=== PATIENT | female | born 1940 | race Caucasian/White ===

== ENCOUNTER 2020-09-28 08:56 | Outpatient (CLI) | payer MEDICARE ==
--- NOTE | 2020-09-28 09:34 | BD ---
EXAM: Bone densitometry using DEXA HISTORY: 80 yo female. Screening for postmenopausal osteoporosis FINDINGS: L1--bone mineral density 0.845 g/sq cm; T score -1.3 ; Z score 1.1 L2--bone mineral density 0.966 g/sq cm; T score -0.6 ; Z score 2.1 L3--bone mineral density 1.020 g/sq cm; T score -0.6 ; Z score 2.2 L4--bone mineral density 1.130 g/sq cm; T score 0.6 ; Z score 2.5 Total L1-L4--bone mineral density 0.95 g/sq cm; T score -0.6 ; Z score 2.2 Left femoral neck--bone mineral density0.722; T score -1.1 ; Z score 1.2 Total proximal left femur--bone mineral density 0.745; T score -1.6 ; Z score 0.5 The 10 year fracture risk for a major osteoporotic fracture is 11% and for a hip fracture is 2.5%. IMPRESSION: Osteopenia
== END 2020-09-28 08:57 | disposition home or self-care (01) ==
LOC: BICMAMMO 08:56
PROVIDERS: ATTEND Internal Medicine
DX: Z13.820 Encounter for screening for osteoporosis (principal); M85.89 Other specified disorders of bone density and structure, multiple sites; Z78.0 Asymptomatic menopausal state
CPT/HCPCS: 77080

== ENCOUNTER 2020-11-30 08:08 | Outpatient (CLI) | payer MEDICARE ==
--- NOTE | 2020-11-30 11:05 | MMO ---
Bilateral MAMMO Bilat Screen [facility]. CLINICAL HISTORY: Patient is 80 years old and is seen for screening. The patient has no family history of breast cancer. The patient has no personal history of cancer. VIEWS: The views performed were: bilateral craniocaudal with tomosynthesis and bilateral mediolateral oblique with tomosynthesis. FILMS COMPARED: The present examination has been compared to prior imaging studies performed at [facility] on 11/18/2019, and at [facility] on 09/23/2015 and 09/25/2016. This study has been interpreted with the assistance of computer-aided detection. MAMMOGRAM FINDINGS: There are scattered fibroglandular densities. Benign calcifications are noted bilaterally. There are no suspicious masses, suspicious calcifications, or new areas of architectural distortion. IMPRESSION: THERE IS NO MAMMOGRAPHIC EVIDENCE OF MALIGNANCY. A ROUTINE FOLLOW-UP MAMMOGRAM IN 1 YEAR IS RECOMMENDED. THE RESULTS OF THIS EXAM WERE SENT TO THE PATIENT. ACR BI-RADS Category 2 - Benign finding MAMMOGRAPHY NOTE: 1. A negative mammogram report should not delay a biopsy if a dominant of clinically suspicious mass is present. 2. Approximately 10% to 15% of breast cancers are not detected by mammography. 3. Adenosis and dense breasts may obscure an underlying neoplasm. Reported by: FRANCINE LUND MD Electonically Signed: [id number]
== END 2020-11-30 08:09 | disposition home or self-care (01) ==
LOC: BICMAMMO 08:08
PROVIDERS: ATTEND Obstetrics & Gynecology
DX: Z12.31 Encounter for screening mammogram for malignant neoplasm of breast (principal)
CPT/HCPCS: 77063; 77067

== ENCOUNTER 2021-01-12 09:21 | Emergency (ER) | payer OTHER, SELFPAY | END 2021-01-12 10:50 | disposition home or self-care (01) | LOC: ERS 09:21 | DX: S51.002A Unspecified open wound of left elbow, initial encounter (principal); S81.002A Unspecified open wound, left knee, initial encounter; I10 Essential (primary) hypertension; W01.0XXA Fall on same level from slipping, tripping and stumbling without subsequent striking against object, initial encounter | CPT/HCPCS: 99282 ==

== ENCOUNTER 2021-12-01 08:11 | Outpatient (CLI) | payer MEDICARE | END 2021-12-01 08:12 | disposition home or self-care (01) | LOC: BICMAMMO 08:11 | PROVIDERS: ATTEND Obstetrics & Gynecology | DX: Z12.31 Encounter for screening mammogram for malignant neoplasm of breast (principal) | CPT/HCPCS: 77063; 77067 ==

== ENCOUNTER 2022-12-14 09:53 | Outpatient (CLI) | payer MEDICARE | END 2022-12-14 09:54 | disposition home or self-care (01) | LOC: BICMAMMO 09:53 | PROVIDERS: ATTEND Internal Medicine | DX: Z12.31 Encounter for screening mammogram for malignant neoplasm of breast (principal) | CPT/HCPCS: 77063; 77067 ==

== ENCOUNTER 2023-08-12 08:28 | Inpatient (IN) | payer MEDICARE ==
[2023-08-12] MEDS ORDERED: Labetalol HCl 100 MG/20 ML VIAL ONE (08:53)
[2023-08-12] MEDS ORDERED: Iopamidol-370 76% 500 ML MDV (1 ML CHARGE) ONE (08:55)
[2023-08-12 09:02] LABS: #Eosinphils 0.2 thou/uL (0.0-0.7); #Monocytes 0.4 thou/uL (0.11-0.59); #Neutrophils 3.5 thou/uL (1.40-6.50); %Basophils 0.6 % (0.0-1.0); %Eosinophils 2.9 % (0.0-10.0); %Lymphocytes 22.2 % (21.0-51.0); %Neutrophils 66.1 % (42.0-75.0); Hematocrit 39.2 % (36.0-47.0); Hemoglobin 13.3 g/dL (12.0-16.0); Mean Corpuscular HGB CONC 33.9 g/dL (32.0-36.0); Mean Corpuscular Hemoglobin 32.4 pg (27.0-31.0); Mean Corpuscular Volume 95.4 fl (78.0-98.0); Mean Platelet Volume 12.1 fL (7.4-10.4); Platelet Count 113 10x3/uL (130-400); RBC Distribution Width 12.4 % (11.5-14.5); Red Blood Cell (RBC) Count 4.11 mill/uL (4.20-5.40); White Blood Cell (WBC) Count 5.2 10x3/uL (4.8-10.8)
[2023-08-12] MEDS ORDERED: Tenecteplase 50 MG ONE (09:09)
[2023-08-12] MEDS ORDERED: niCARdipine 25 MG/10 ML SDV ONE (09:09)
[2023-08-12 09:27] LABS: ALT (SGPT) 16 U/L (8-55); AST (SGOT) 17 U/L (5-34); Albumin 4.1 g/dL (3.4-4.8); Alkaline Phosphatase 86 U/L (40-110); Anion Gap 14 mmol/L (10-20); BUN (Urea Nitrogen) 12 mg/dL (9.8-20.1); Bilirubin, Total 0.8 mg/dL (0.2-1.2); Calc. Creatinine Clearance 0 mL/min (70-130); Calcium 8.4 mg/dL (7.8-10.44); Carbon Dioxide 22 mmol/L (23-31); Chloride 106 mmol/L (98-107); Estimated GFR 87; Globulin 1.8 g/dL (2.4-3.5); Glucose 97 mg/dL (83-110); INR-International Normal Ratio 1.1; Potassium 4.1 mmol/L (3.5-5.1); Protein, Total 5.9 g/dL (5.8-8.1); Prothrombin Time 14.9 sec (12.0-14.7); Sodium 138 mmol/L (136-145)
[2023-08-12 09:28] LABS: PTT 30.6 sec (22.9-36.1)
[2023-08-12 09:29] LABS: Troponin I Less than 0.010 ng/mL (< 0.028)
[2023-08-12] MEDS ORDERED: niCARdipine 25 MG in Sodium Chloride 0.9% 250 ML 250 ML IVPB PRN (09:54)
[2023-08-12] MEDS ORDERED: TPA Communication Order-Pharmacy FS SCH (09:54)
[2023-08-12] MEDS ORDERED: Ondansetron PF 4 MG/2 ML Vial IVP PRN (09:54)
[2023-08-12] MEDS ORDERED: Senokot S 8.6-50 MG TAB PO PRN (09:54)
[2023-08-12] MEDS ORDERED: Calcium Carbonate 500 MG ChewTAB PO PRN (09:54)
[2023-08-12 10:14] LABS: Bacteria/HPF None Seen HPF (None Seen); Bilirubin Negative (Negative); Blood, Urine Negative (Negative); CAUTI Indications for Culture Alt mental st,lethar; Clarity Clear (Clear); Glucose, Urine (Dipstick) Normal (Negative); Ketone, Urine Negative (Negative); Leukocyte Negative Leu/uL (Negative); Nitrite Negative (Negative); Protein, Urine (Dipstick) Negative (Neg-Trace); RBC/HPF 0-3 HPF (0-3); Specific Gravity, Urine 1.031 (1.002-1.036); Squamous Epithelial 0-3 HPF (0-3); Urobilinogen Normal mg/dL (Less than 2); WBC/HPF 0-3 HPF (0-3); pH, Urine 7.5 (5.0-9.0)
[2023-08-12 10:18] LABS: Urine Culture Reflex No No
[2023-08-12] MEDS: Sodium Chloride 0.9% 1,000 ML IV SCH ×2 (11:14→23:22)
[2023-08-12] MEDS: Labetalol HCl 100 MG/20 ML VIAL SLOW IVP PRN ×4 (13:04→18:07)
[2023-08-12] MEDS: Lorazepam 2 MG/ML VIAL SLOW IVP PRN ×2 (14:46→20:06)
[2023-08-12] MEDS: hydrALAZINE 20 MG/ML VIAL SLOW IVP PRN (18:29)
[2023-08-12] MEDS: Famotidine/PF 20 mg/2ml Vial SLOW IVP SCH (20:05)
[2023-08-12] MEDS: Rosuvastatin 20 MG TAB PO SCH (20:22)
[2023-08-12] MEDS ORDERED: Ketorolac Tromethamine 30 MG/ML VIAL IVP PRN (20:26)
[2023-08-12 21:49] LABS: Calcium 8.6 mg/dL (7.8-10.44)
[2023-08-12 21:55] LABS: Anion Gap 13 mmol/L (10-20); BUN (Urea Nitrogen) 13 mg/dL (9.8-20.1); Calc. Creatinine Clearance 61 mL/min (70-130); Calcium 8.8 mg/dL (7.8-10.44); Carbon Dioxide 21 mmol/L (23-31); Chloride 107 mmol/L (98-107); Estimated GFR 88; Glucose 119 mg/dL (83-110); Magnesium 1.6 mg/dL (1.6-2.6); Potassium 3.4 mmol/L (3.5-5.1); Sodium 138 mmol/L (136-145)
[2023-08-12] MEDS ORDERED: Potassium Chloride 20 MEQ in Premix 1 BAG IVPB SCH (22:45)
[2023-08-12] MEDS ORDERED: Magnesium 2 GM/50 ML(in water) 2 GM in Premix 1 BAG IVPB SCH (22:45)
[2023-08-13] MEDS: Labetalol HCl 100 MG/20 ML VIAL SLOW IVP PRN ×5 (05:11→20:47)
[2023-08-13] MEDS: Famotidine/PF 20 mg/2ml Vial SLOW IVP SCH ×2 (08:10→20:47)
[2023-08-13] MEDS: hydrALAZINE 20 MG/ML VIAL SLOW IVP PRN (09:04)
[2023-08-13] MEDS: Lactated Ringer's 1,000 ML IV SCH (11:10)
[2023-08-13 12:54] LABS: #Eosinphils 0.1 thou/uL (0.0-0.7); #Monocytes 0.7 thou/uL (0.11-0.59); #Neutrophils 7.7 thou/uL (1.40-6.50); %Basophils 0.2 % (0.0-1.0); %Eosinophils 0.5 % (0.0-10.0); %Lymphocytes 12.2 % (21.0-51.0); %Monocytes 7.5 % (0.0-10.0); %Neutrophils 79.4 % (42.0-75.0); Hematocrit 38.9 % (36.0-47.0); Hemoglobin 13.8 g/dL (12.0-16.0); Mean Corpuscular HGB CONC 35.5 g/dL (32.0-36.0); Mean Corpuscular Hemoglobin 32.5 pg (27.0-31.0); Mean Corpuscular Volume 91.7 fl (78.0-98.0); Mean Platelet Volume 11.9 fL (7.4-10.4); Platelet Count 130 10x3/uL (130-400); RBC Distribution Width 12.7 % (11.5-14.5); Red Blood Cell (RBC) Count 4.24 mill/uL (4.20-5.40); White Blood Cell (WBC) Count 9.7 10x3/uL (4.8-10.8)
[2023-08-13 13:04] LABS: Hemoglobin A1c 4.9 % (4.0-6.0)
[2023-08-13 13:08] LABS: INR-International Normal Ratio 1.2; Prothrombin Time 15.3 sec (12.0-14.7)
[2023-08-13 13:19] LABS: ALT (SGPT) 15 U/L (8-55); AST (SGOT) 20 U/L (5-34); Albumin 4.4 g/dL (3.4-4.8); Alkaline Phosphatase 89 U/L (40-110); Anion Gap 13 mmol/L (10-20); BUN (Urea Nitrogen) 11 mg/dL (9.8-20.1); Bilirubin, Total 1.2 mg/dL (0.2-1.2); Calc. Creatinine Clearance 58 mL/min (70-130); Calcium 8.9 mg/dL (7.8-10.44); Carbon Dioxide 20 mmol/L (23-31); Cardiac Risk 2.4 (Less than 4.5); Chloride 108 mmol/L (98-107); Cholesterol 154 mg/dl (< 200 Desired); Estimated GFR 87; Globulin 2.2 g/dL (2.4-3.5); Glucose 112 mg/dL (83-110); HDL Cholesterol 65 mg/dL (>60 Neg Risk); LDL Cholesterol, Calculated 75 mg/dL; Magnesium 2.1 mg/dL (1.6-2.6); Potassium 3.8 mmol/L (3.5-5.1); Protein, Total 6.6 g/dL (5.8-8.1); Sodium 137 mmol/L (136-145); Triglycerides 71 mg/dL (Less than 150)
[2023-08-13 13:26] LABS: PTT 29.1 sec (22.9-36.1)
[2023-08-13] MEDS: Ketorolac Tromethamine 30 MG/ML VIAL IVP PRN (18:56)
[2023-08-13] MEDS: Rosuvastatin 20 MG TAB PO SCH (20:48)
[2023-08-13] MEDS: Acetaminophen 325 MG TAB PO PRN (20:48)
[2023-08-14] MEDS: hydrALAZINE 20 MG/ML VIAL SLOW IVP PRN ×2 (00:11→16:48)
[2023-08-14] MEDS: Lactated Ringer's 1,000 ML IV SCH (00:15)
[2023-08-14] MEDS ORDERED: Lorazepam 2 MG/ML VIAL SLOW IVP SCH (01:00)
[2023-08-14] MEDS: Labetalol HCl 100 MG/20 ML VIAL SLOW IVP PRN ×4 (05:16→12:13)
[2023-08-14] MEDS: Famotidine/PF 20 mg/2ml Vial SLOW IVP SCH ×2 (08:02→21:08)
[2023-08-14] MEDS: Rosuvastatin 20 MG TAB PO SCH (21:07)
[2023-08-14] MEDS: Acetaminophen 325 MG TAB PO PRN (21:08)
[2023-08-15 05:13] LABS: #Monocytes 1.2 thou/uL (0.11-0.59); %Basophils 0.2 % (0.0-1.0); %Eosinophils 0.3 % (0.0-10.0); %Lymphocytes 9.2 % (21.0-51.0); %Monocytes 10.9 % (0.0-10.0); Hematocrit 36.7 % (36.0-47.0); Hemoglobin 12.6 g/dL (12.0-16.0); Mean Corpuscular HGB CONC 34.3 g/dL (32.0-36.0); Mean Corpuscular Hemoglobin 32.5 pg (27.0-31.0); Mean Corpuscular Volume 94.6 fl (78.0-98.0); Mean Platelet Volume 12.3 fL (7.4-10.4); Platelet Count 127 10x3/uL (130-400); RBC Distribution Width 12.8 % (11.5-14.5); Red Blood Cell (RBC) Count 3.88 mill/uL (4.20-5.40); White Blood Cell (WBC) Count 11.4 10x3/uL (4.8-10.8)
[2023-08-15 05:48] LABS: Anion Gap 18 mmol/L (10-20); BUN (Urea Nitrogen) 21 mg/dL (9.8-20.1); Calc. Creatinine Clearance 56 mL/min (70-130); Calcium 8.6 mg/dL (7.8-10.44); Carbon Dioxide 18 mmol/L (23-31); Chloride 108 mmol/L (98-107); Estimated GFR 87; Glucose 80 mg/dL (83-110); Potassium 3.1 mmol/L (3.5-5.1); Sodium 141 mmol/L (136-145)
[2023-08-15] MEDS: Famotidine/PF 20 mg/2ml Vial SLOW IVP SCH ×2 (08:25→20:47)
[2023-08-15] MEDS: D5 1/2 NS w/20 mEq KCL 1,000 ML IV SCH ×2 (08:25→20:46)
[2023-08-15] MEDS: hydrALAZINE 20 MG/ML VIAL SLOW IVP PRN (08:26)
[2023-08-15] MEDS: Ketorolac Tromethamine 30 MG/ML VIAL IVP PRN (15:38)
[2023-08-15] MEDS: Rosuvastatin 20 MG TAB PO SCH (20:47)
[2023-08-15] MEDS: Acetaminophen 325 MG TAB PO PRN (20:48)
[2023-08-15] MEDS: Labetalol HCl 100 MG/20 ML VIAL SLOW IVP PRN ×2 (20:48→22:47)
[2023-08-15] MEDS: Melatonin 3 MG TAB PO PRN (22:46)
[2023-08-16] MEDS: Ketorolac Tromethamine 30 MG/ML VIAL IVP PRN (05:35)
[2023-08-16] MEDS: D5 1/2 NS w/20 mEq KCL 1,000 ML IV SCH ×2 (11:45→23:24)
[2023-08-16] MEDS: Famotidine/PF 20 mg/2ml Vial SLOW IVP SCH ×2 (11:45→20:04)
[2023-08-16] MEDS: Aspirin 300 MG Suppository PR SCH (11:46)
[2023-08-16] MEDS: hydrALAZINE 20 MG/ML VIAL SLOW IVP PRN ×2 (15:42→21:39)
[2023-08-16] MEDS: Labetalol HCl 100 MG/20 ML VIAL SLOW IVP PRN (19:46)
[2023-08-16] MEDS: Rosuvastatin 20 MG TAB PO SCH (20:04)
[2023-08-16] MEDS ORDERED: traMADol HCl 50 MG TAB PO SCH (23:15)
[2023-08-17] MEDS: hydrALAZINE 20 MG/ML VIAL SLOW IVP PRN ×2 (06:05→20:24)
[2023-08-17] MEDS: Acetaminophen 325 MG TAB PO PRN ×2 (06:09→13:30)
[2023-08-17] MEDS: Aspirin 300 MG Suppository PR SCH (10:07)
[2023-08-17] MEDS: Famotidine/PF 20 mg/2ml Vial SLOW IVP SCH ×2 (10:09→20:06)
[2023-08-17] MEDS: Labetalol HCl 100 MG/20 ML VIAL SLOW IVP PRN ×2 (12:00→16:52)
[2023-08-17] MEDS: D5 1/2 NS w/20 mEq KCL 1,000 ML IV SCH (12:00)
[2023-08-17] MEDS: Cyclobenzaprine 10 MG TAB PO PRN (13:54)
[2023-08-17] MEDS ORDERED: Gabapentin 300 MG CAP PO SCH (16:00)
[2023-08-17] MEDS: Melatonin 3 MG TAB PO PRN (20:05)
[2023-08-17] MEDS: Gabapentin 300 MG CAP PO SCH (20:05)
[2023-08-17] MEDS: Rosuvastatin 20 MG TAB PO SCH (20:06)
[2023-08-17] MEDS: Atenolol 50 MG TAB PO SCH (20:06)
[2023-08-17] MEDS ORDERED: Atorvastatin Calcium 10 MG TAB PO SCH (21:00)
[2023-08-17] MEDS: traMADol HCl 50 MG TAB PO PRN (21:11)
[2023-08-18] MEDS: D5 1/2 NS w/20 mEq KCL 1,000 ML IV SCH ×2 (02:00→13:55)
[2023-08-18] MEDS: Labetalol HCl 100 MG/20 ML VIAL SLOW IVP PRN (06:17)
[2023-08-18] MEDS: Cyclobenzaprine 10 MG TAB PO PRN (09:06)
[2023-08-18] MEDS: Gabapentin 300 MG CAP PO SCH ×3 (09:07→20:47)
[2023-08-18] MEDS: hydrALAZINE 20 MG/ML VIAL SLOW IVP PRN ×2 (09:07→19:05)
[2023-08-18] MEDS: Aspirin 300 MG Suppository PR SCH (09:08)
[2023-08-18] MEDS: Famotidine/PF 20 mg/2ml Vial SLOW IVP SCH ×2 (09:08→20:50)
[2023-08-18] MEDS: traMADol HCl 50 MG TAB PO PRN ×2 (10:16→20:49)
[2023-08-18] MEDS ORDERED: Morphine 2 MG/ML VIAL SLOW IVP SCH (10:45)
[2023-08-18] MEDS: Baclofen 10 MG TAB PO PRN ×2 (15:57→20:48)
[2023-08-18 18:07] LABS: Anion Gap 11 mmol/L (10-20); BUN (Urea Nitrogen) 9 mg/dL (9.8-20.1); Calc. Creatinine Clearance 59 mL/min (70-130); Calcium 8.7 mg/dL (7.8-10.44); Carbon Dioxide 18 mmol/L (23-31); Chloride 105 mmol/L (98-107); Estimated GFR 87; Glucose 114 mg/dL (83-110); Magnesium 1.7 mg/dL (1.6-2.6); Potassium 4.3 mmol/L (3.5-5.1); Sodium 130 mmol/L (136-145)
[2023-08-18] MEDS: Atenolol 50 MG TAB PO SCH (20:48)
[2023-08-18] MEDS: Rosuvastatin 20 MG TAB PO SCH (20:49)
[2023-08-18] MEDS: Melatonin 3 MG TAB PO PRN (20:49)
[2023-08-18] MEDS ORDERED: Atorvastatin Calcium 40 MG TAB PO SCH (21:00)
[2023-08-18] MEDS: Sodium Chloride 0.9% 1,000 ML IV SCH (22:24)
[2023-08-19] MEDS: hydrALAZINE 20 MG/ML VIAL SLOW IVP PRN ×3 (05:09→23:16)
[2023-08-19 08:22] LABS: #Eosinphils 0.2 thou/uL (0.0-0.7); #Monocytes 0.9 thou/uL (0.11-0.59); #Neutrophils 6.2 thou/uL (1.40-6.50); %Basophils 0.2 % (0.0-1.0); %Eosinophils 2.3 % (0.0-10.0); %Monocytes 11.2 % (0.0-10.0); %Neutrophils 74.1 % (42.0-75.0); Hematocrit 36.3 % (36.0-47.0); Hemoglobin 12.5 g/dL (12.0-16.0); Mean Corpuscular HGB CONC 34.4 g/dL (32.0-36.0); Mean Corpuscular Hemoglobin 32.6 pg (27.0-31.0); Mean Corpuscular Volume 94.8 fl (78.0-98.0); Mean Platelet Volume 12.3 fL (7.4-10.4); Platelet Count 144 10x3/uL (130-400); RBC Distribution Width 12.1 % (11.5-14.5); Red Blood Cell (RBC) Count 3.83 mill/uL (4.20-5.40); White Blood Cell (WBC) Count 8.4 10x3/uL (4.8-10.8)
[2023-08-19 08:43] LABS: Anion Gap 12 mmol/L (10-20); BUN (Urea Nitrogen) 9 mg/dL (9.8-20.1); Calc. Creatinine Clearance 62 mL/min (70-130); Calcium 8.8 mg/dL (7.8-10.44); Carbon Dioxide 22 mmol/L (23-31); Chloride 105 mmol/L (98-107); Estimated GFR 88; Glucose 93 mg/dL (83-110); Potassium 4.1 mmol/L (3.5-5.1); Sodium 135 mmol/L (136-145)
[2023-08-19] MEDS: Gabapentin 300 MG CAP PO SCH ×3 (09:03→20:43)
[2023-08-19] MEDS: Acetaminophen 650 MG Suppository PR PRN (09:04)
[2023-08-19] MEDS: Famotidine/PF 20 mg/2ml Vial SLOW IVP SCH ×2 (09:06→20:44)
[2023-08-19] MEDS: Losartan 25 MG TAB PO SCH (09:08)
[2023-08-19] MEDS: Aspirin 300 MG Suppository PR SCH (09:09)
[2023-08-19] MEDS: Sodium Chloride 0.9% 1,000 ML IV SCH ×2 (10:44→12:12)
[2023-08-19] MEDS: Acetaminophen 325 MG TAB PO PRN (14:11)
[2023-08-19] MEDS: traMADol HCl 50 MG TAB PO PRN ×2 (14:12→20:50)
[2023-08-19] MEDS: Atenolol 50 MG TAB PO SCH (20:44)
[2023-08-19] MEDS: Rosuvastatin 20 MG TAB PO SCH (20:44)
[2023-08-19] MEDS: Melatonin 3 MG TAB PO PRN (23:13)
[2023-08-20] MEDS: Labetalol HCl 100 MG/20 ML VIAL SLOW IVP PRN ×2 (04:55→21:03)
[2023-08-20] MEDS: Gabapentin 300 MG CAP PO SCH ×3 (08:11→21:02)
[2023-08-20] MEDS: traMADol HCl 50 MG TAB PO PRN ×2 (08:12→18:33)
[2023-08-20] MEDS: hydrALAZINE 20 MG/ML VIAL SLOW IVP PRN ×2 (08:13→16:23)
[2023-08-20] MEDS: Losartan 25 MG TAB PO SCH (08:13)
[2023-08-20] MEDS: Aspirin 300 MG Suppository PR SCH (08:15)
[2023-08-20] MEDS: Acetaminophen 650 MG Suppository PR PRN (08:15)
[2023-08-20] MEDS: Famotidine/PF 20 mg/2ml Vial SLOW IVP SCH ×2 (08:15→21:03)
[2023-08-20] MEDS ORDERED: Losartan 25 MG TAB PO SCH ×2 (09:00→13:00)
[2023-08-20] MEDS: Sodium Chloride 0.9% 1,000 ML IV SCH (15:44)
[2023-08-20] MEDS: Baclofen 10 MG TAB PO PRN (18:33)
[2023-08-20] MEDS: Atenolol 50 MG TAB PO SCH (21:01)
[2023-08-20] MEDS: Melatonin 3 MG TAB PO PRN (21:02)
[2023-08-20] MEDS: Rosuvastatin 20 MG TAB PO SCH (21:03)
[2023-08-21] MEDS: Sodium Chloride 0.9% 1,000 ML IV SCH ×2 (02:26→16:59)
[2023-08-21] MEDS: Labetalol HCl 100 MG/20 ML VIAL SLOW IVP PRN (05:48)
[2023-08-21] MEDS ORDERED: Sodium Chloride 0.9% 100 ML ONE (10:02)
[2023-08-21] MEDS ORDERED: CEFAZOLIN 2 GM VIAL ONE (10:02)
[2023-08-21] MEDS ORDERED: Lidocaine 1% PF 5 ML VIAL ONE (10:15)
[2023-08-21] MEDS ORDERED: PROPOFOL 200 MG/20 ML VIAL ONE (10:15)
[2023-08-21] MEDS: Famotidine/PF 20 mg/2ml Vial SLOW IVP SCH (10:26)
[2023-08-21] MEDS: Gabapentin 300 MG CAP PO SCH ×3 (10:26→20:51)
[2023-08-21] MEDS: Losartan 25 MG TAB PO SCH (10:27)
[2023-08-21] MEDS: Aspirin 300 MG Suppository PR SCH (10:27)
[2023-08-21] MEDS ORDERED: ALPRAZolam 0.25 MG TAB PO SCH (12:15)
[2023-08-21] MEDS: Baclofen 10 MG TAB PO PRN (12:59)
[2023-08-21] MEDS: traMADol HCl 50 MG TAB PO PRN ×2 (12:59→21:02)
[2023-08-21] MEDS: hydrALAZINE 20 MG/ML VIAL SLOW IVP PRN (13:00)
[2023-08-21] MEDS: Rosuvastatin 20 MG TAB PO SCH (20:52)
[2023-08-21] MEDS: Famotidine 20 MG TAB PER TUBE SCH (20:52)
[2023-08-21] MEDS: Atenolol 50 MG TAB PO SCH (20:52)
[2023-08-22] MEDS: Sodium Chloride 0.9% 1,000 ML IV SCH (04:10)
[2023-08-22] MEDS: Gabapentin 300 MG CAP PO SCH ×2 (09:30→17:38)
[2023-08-22] MEDS: Famotidine 20 MG TAB PER TUBE SCH ×2 (09:32→20:46)
[2023-08-22] MEDS: Aspirin Chewable 81 MG TAB PER TUBE SCH (09:32)
[2023-08-22] MEDS: Losartan 25 MG TAB PO SCH (09:33)
[2023-08-22] MEDS: Amlodipine 5 MG TAB PER TUBE SCH (09:36)
[2023-08-22] MEDS: traMADol HCl 50 MG TAB PO PRN (17:36)
[2023-08-22] MEDS ORDERED: Calcium Carbonate 500 MG ChewTAB PER TUBE PRN (20:45)
[2023-08-22] MEDS: Gabapentin 300 MG CAP PER TUBE SCH (20:47)
[2023-08-22] MEDS: Rosuvastatin 20 MG TAB PER TUBE SCH (20:48)
[2023-08-22] MEDS: Atenolol 50 MG TAB PER TUBE SCH (20:48)
[2023-08-23] MEDS: Melatonin 3 MG TAB PER TUBE PRN (00:18)
[2023-08-23 05:31] LABS: Anion Gap 7 mmol/L (10-20); BUN (Urea Nitrogen) 28 mg/dL (9.8-20.1); Calc. Creatinine Clearance 46 mL/min (70-130); Calcium 8.4 mg/dL (7.8-10.44); Carbon Dioxide 26 mmol/L (23-31); Chloride 102 mmol/L (98-107); Estimated GFR 75; Glucose 165 mg/dL (83-110); Magnesium 1.7 mg/dL (1.6-2.6); Potassium 3.4 mmol/L (3.5-5.1); Sodium 132 mmol/L (136-145)
[2023-08-23 05:39] LABS: Phosphorus 1.4 mg/dL (2.3-4.7)
[2023-08-23] MEDS ORDERED: Electrolyte Replacement Protocol 1 EACH FS SCH (05:47)
[2023-08-23] MEDS ORDERED: Potassium Bicarbonate/Cit Ac 20 MEQ TAB PO SCH (08:15)
[2023-08-23] MEDS ORDERED: Potassium Phosphate 30 MMOL in Sodium Chloride 0.9% 500 ML IVPB SCH (09:00)
[2023-08-23] MEDS: Gabapentin 300 MG CAP PER TUBE SCH ×3 (09:05→22:16)
[2023-08-23] MEDS: Losartan 25 MG TAB PER TUBE SCH (09:06)
[2023-08-23] MEDS: Aspirin Chewable 81 MG TAB PER TUBE SCH (09:07)
[2023-08-23] MEDS: Magnesium Oxide 400 MG TAB PO SCH (09:07)
[2023-08-23] MEDS: Famotidine 20 MG TAB PER TUBE SCH ×2 (09:07→22:15)
[2023-08-23] MEDS: Baclofen 10 MG TAB PER TUBE PRN (10:22)
[2023-08-23] MEDS: Acetaminophen 650 MG/20.3 ML UDCUP PER TUBE PRN (10:22)
[2023-08-23] MEDS: Amlodipine 5 MG TAB PER TUBE SCH (10:22)
[2023-08-23] MEDS ORDERED: Metoclopramide HCl 10 MG/2 ML VIAL IVP SCH (16:30)
[2023-08-23] MEDS: Senokot S 8.6-50 MG TAB PER TUBE PRN (17:11)
[2023-08-23] MEDS: Atenolol 50 MG TAB PER TUBE SCH (22:15)
[2023-08-23] MEDS: Rosuvastatin 20 MG TAB PER TUBE SCH (22:16)
[2023-08-24 06:50] LABS: Anion Gap 12 mmol/L (10-20); BUN (Urea Nitrogen) 22 mg/dL (9.8-20.1); Calc. Creatinine Clearance 55 mL/min (70-130); Calcium 8.4 mg/dL (7.8-10.44); Carbon Dioxide 24 mmol/L (23-31); Chloride 106 mmol/L (98-107); Estimated GFR 84; Glucose 87 mg/dL (83-110); Phosphorus 2.5 mg/dL (2.3-4.7); Potassium 4.6 mmol/L (3.5-5.1); Sodium 137 mmol/L (136-145)
[2023-08-24] MEDS: Gabapentin 300 MG CAP PER TUBE SCH ×3 (10:34→20:31)
[2023-08-24] MEDS: Amlodipine 5 MG TAB PER TUBE SCH (10:34)
[2023-08-24] MEDS: Aspirin Chewable 81 MG TAB PER TUBE SCH (10:34)
[2023-08-24] MEDS: Famotidine 20 MG TAB PER TUBE SCH ×2 (10:34→20:32)
[2023-08-24] MEDS: Losartan 25 MG TAB PER TUBE SCH (10:35)
[2023-08-24] MEDS: Magnesium Oxide 400 MG TAB PO SCH (10:35)
[2023-08-24] MEDS: traMADol HCl 50 MG TAB PER TUBE PRN (19:50)
[2023-08-24] MEDS: Rosuvastatin 20 MG TAB PER TUBE SCH (20:31)
[2023-08-24] MEDS: Melatonin 3 MG TAB PER TUBE PRN (20:31)
[2023-08-24] MEDS: Baclofen 10 MG TAB PER TUBE PRN (20:32)
[2023-08-24] MEDS: Atenolol 50 MG TAB PER TUBE SCH (20:32)
[2023-08-25] MEDS: Amlodipine 10 MG TAB PER TUBE SCH (09:08)
[2023-08-25] MEDS: Famotidine 20 MG TAB PER TUBE SCH ×2 (09:08→20:56)
[2023-08-25] MEDS: Gabapentin 300 MG CAP PER TUBE SCH ×3 (09:09→20:57)
[2023-08-25] MEDS: Aspirin Chewable 81 MG TAB PER TUBE SCH (09:09)
[2023-08-25] MEDS: Losartan 25 MG TAB PER TUBE SCH (09:09)
[2023-08-25] MEDS: Metoclopramide HCl 10 MG/2 ML VIAL IVP SCH ×2 (14:56→21:11)
[2023-08-25 16:10] VITALS: BMI 23.1
[2023-08-25] MEDS: Baclofen 10 MG TAB PER TUBE PRN (20:56)
[2023-08-25] MEDS: Rosuvastatin 20 MG TAB PER TUBE SCH (20:56)
[2023-08-25] MEDS: Atenolol 50 MG TAB PER TUBE SCH (20:56)
[2023-08-25] MEDS: Melatonin 3 MG TAB PER TUBE PRN (20:56)
[2023-08-25] MEDS: traMADol HCl 50 MG TAB PER TUBE PRN (20:57)
[2023-08-26] MEDS: Metoclopramide HCl 10 MG/2 ML VIAL IVP SCH ×3 (05:18→21:57)
[2023-08-26 05:21] LABS: Hemoglobin 11.1 g/dL (12.0-16.0); Mean Corpuscular HGB CONC 33.6 g/dL (32.0-36.0); Mean Corpuscular Hemoglobin 31.8 pg (27.0-31.0); Mean Corpuscular Volume 94.6 fl (78.0-98.0); Mean Platelet Volume 11.6 fL (7.4-10.4); Platelet Count 183 10x3/uL (130-400); RBC Distribution Width 11.6 % (11.5-14.5); Red Blood Cell (RBC) Count 3.49 mill/uL (4.20-5.40); White Blood Cell (WBC) Count 11.6 10x3/uL (4.8-10.8)
[2023-08-26 06:11] LABS: Anion Gap 11 mmol/L (10-20); BUN (Urea Nitrogen) 20 mg/dL (9.8-20.1); Calc. Creatinine Clearance 59 mL/min (70-130); Calcium 8.8 mg/dL (7.8-10.44); Carbon Dioxide 28 mmol/L (23-31); Chloride 101 mmol/L (98-107); Estimated GFR 87; Glucose 103 mg/dL (83-110); Magnesium 1.6 mg/dL (1.6-2.6); Phosphorus 3.4 mg/dL (2.3-4.7); Potassium 4.5 mmol/L (3.5-5.1); Sodium 135 mmol/L (136-145)
[2023-08-26] MEDS ORDERED: Magnesium 2 GM/50 ML(in water) 2 GM in Premix 1 BAG IVPB SCH (08:15)
[2023-08-26] MEDS: Gabapentin 300 MG CAP PER TUBE SCH ×3 (09:27→21:57)
[2023-08-26] MEDS: Losartan 25 MG TAB PER TUBE SCH (09:27)
[2023-08-26] MEDS: Amlodipine 10 MG TAB PER TUBE SCH (09:27)
[2023-08-26] MEDS: Baclofen 10 MG TAB PER TUBE PRN (09:28)
[2023-08-26] MEDS: Famotidine 20 MG TAB PER TUBE SCH ×2 (09:28→21:56)
[2023-08-26] MEDS: Aspirin Chewable 81 MG TAB PER TUBE SCH (09:28)
[2023-08-26] MEDS ORDERED: Acetaminophen 325 MG/10.15 ML UDCUP PER TUBE SCH (16:30)
[2023-08-26 16:38] LABS: Bacteria/HPF 2+ HPF (None Seen); Bilirubin Negative (Negative); Blood, Urine Trace (Negative); Clarity Turbid (Clear); Glucose, Urine (Dipstick) Normal (Negative); Ketone, Urine Negative (Negative); Leukocyte 500 Leu/uL (Negative); Nitrite Negative (Negative); Protein, Urine (Dipstick) 30 mg/dL (Neg-Trace); Specific Gravity, Urine 1.014 (1.002-1.036); Squamous Epithelial 0-3 HPF (0-3); Urobilinogen 6 mg/dL (Less than 2); WBC/HPF Greater than 50 HPF (0-3); pH, Urine 7.5 (5.0-9.0)
[2023-08-26] MEDS ORDERED: Piperacillin/Tazobactam 3.375 GM in Sodium Chloride 0.9% 100 ML IVPB SCH (18:00)
[2023-08-26] MEDS: Acetaminophen 650 MG/20.3 ML UDCUP PER TUBE PRN (21:56)
[2023-08-26] MEDS: Rosuvastatin 20 MG TAB PER TUBE SCH (21:57)
[2023-08-26] MEDS: Atenolol 50 MG TAB PER TUBE SCH (21:57)
[2023-08-26] MEDS: Piperacillin/Tazobactam 3.375 GM in Sodium Chloride 0.9% 100 ML IVPB SCH (21:58)
[2023-08-27] MEDS: Piperacillin/Tazobactam 3.375 GM in Sodium Chloride 0.9% 100 ML IVPB SCH ×3 (04:56→21:53)
[2023-08-27] MEDS: Metoclopramide HCl 10 MG/2 ML VIAL IVP SCH ×3 (04:57→21:53)
[2023-08-27] MEDS: Senokot S 8.6-50 MG TAB PER TUBE PRN (04:57)
[2023-08-27] MEDS: Losartan 25 MG TAB PER TUBE SCH (09:13)
[2023-08-27] MEDS: Famotidine 20 MG TAB PER TUBE SCH ×2 (09:13→21:57)
[2023-08-27] MEDS: Gabapentin 300 MG CAP PER TUBE SCH ×3 (09:13→21:52)
[2023-08-27] MEDS: Clopidogrel Bisulfate 75 MG TAB PO SCH (09:13)
[2023-08-27] MEDS: Amlodipine 10 MG TAB PER TUBE SCH (09:13)
[2023-08-27] MEDS: Baclofen 10 MG TAB PER TUBE PRN ×2 (09:15→21:52)
[2023-08-27] MEDS: Aspirin Chewable 81 MG TAB PER TUBE SCH (09:15)
[2023-08-27] MEDS ORDERED: Glucagon 1 MG/ML KIT IM PRN (18:45)
[2023-08-27] MEDS ORDERED: Dextrose 50% Abboject 50 ML SYRINGE SLOW IVP PRN (18:45)
[2023-08-27] MEDS: Rosuvastatin 20 MG TAB PER TUBE SCH (21:52)
[2023-08-27] MEDS: Atenolol 50 MG TAB PER TUBE SCH (21:52)
[2023-08-28 05:29] LABS: Hematocrit 34.2 % (36.0-47.0); Hemoglobin 11.6 g/dL (12.0-16.0); Mean Corpuscular HGB CONC 33.9 g/dL (32.0-36.0); Mean Corpuscular Hemoglobin 31.9 pg (27.0-31.0); Mean Platelet Volume 12.4 fL (7.4-10.4); Platelet Count 199 10x3/uL (130-400); RBC Distribution Width 11.6 % (11.5-14.5); Red Blood Cell (RBC) Count 3.64 mill/uL (4.20-5.40); White Blood Cell (WBC) Count 11.7 10x3/uL (4.8-10.8)
[2023-08-28] MEDS: Piperacillin/Tazobactam 3.375 GM in Sodium Chloride 0.9% 100 ML IVPB SCH ×3 (05:46→20:57)
[2023-08-28] MEDS: Metoclopramide HCl 10 MG/2 ML VIAL IVP SCH ×3 (05:46→20:57)
[2023-08-28 06:13] LABS: Anion Gap 16 mmol/L (10-20); BUN (Urea Nitrogen) 21 mg/dL (9.8-20.1); Calc. Creatinine Clearance 52 mL/min (70-130); Calcium 8.5 mg/dL (7.8-10.44); Carbon Dioxide 23 mmol/L (23-31); Chloride 104 mmol/L (98-107); Estimated GFR 81; Glucose 92 mg/dL (83-110); Magnesium 1.9 mg/dL (1.6-2.6); Phosphorus 3.3 mg/dL (2.3-4.7); Potassium 4.5 mmol/L (3.5-5.1); Sodium 138 mmol/L (136-145)
[2023-08-28] MEDS: Losartan 25 MG TAB PER TUBE SCH (10:20)
[2023-08-28] MEDS: Amlodipine 10 MG TAB PER TUBE SCH (10:21)
[2023-08-28] MEDS: Aspirin Chewable 81 MG TAB PER TUBE SCH (10:21)
[2023-08-28] MEDS: Famotidine 20 MG TAB PER TUBE SCH ×2 (10:21→20:58)
[2023-08-28] MEDS: Gabapentin 300 MG CAP PER TUBE SCH ×3 (10:21→20:58)
[2023-08-28] MEDS: Clopidogrel Bisulfate 75 MG TAB PO SCH (10:21)
[2023-08-28] MEDS: traMADol HCl 50 MG TAB PER TUBE PRN (17:55)
[2023-08-28] MEDS: Atenolol 50 MG TAB PER TUBE SCH (20:58)
[2023-08-28] MEDS: Rosuvastatin 20 MG TAB PER TUBE SCH (20:58)
[2023-08-29] MEDS: Piperacillin/Tazobactam 3.375 GM in Sodium Chloride 0.9% 100 ML IVPB SCH ×3 (05:50→21:13)
[2023-08-29] MEDS: Metoclopramide HCl 10 MG/2 ML VIAL IVP SCH ×3 (05:51→21:09)
[2023-08-29] MEDS: Aspirin Chewable 81 MG TAB PER TUBE SCH (09:55)
[2023-08-29] MEDS: Losartan 25 MG TAB PER TUBE SCH (09:55)
[2023-08-29] MEDS: NIFEdipine XL 60 MG ER.TAB PO SCH (09:55)
[2023-08-29] MEDS: Famotidine 20 MG TAB PER TUBE SCH ×2 (09:55→21:10)
[2023-08-29] MEDS: Clopidogrel Bisulfate 75 MG TAB PO SCH (09:55)
[2023-08-29] MEDS: Gabapentin 300 MG CAP PER TUBE SCH ×3 (09:55→21:09)
[2023-08-29] MEDS: Baclofen 10 MG TAB PER TUBE PRN (10:01)
[2023-08-29] MEDS: traMADol HCl 50 MG TAB PER TUBE PRN (10:01)
[2023-08-29] MEDS: Rosuvastatin 20 MG TAB PER TUBE SCH (21:09)
[2023-08-29] MEDS: Atenolol 50 MG TAB PER TUBE SCH (21:10)
[2023-08-30 04:56] LABS: #Basophils 0.1 thou/uL (0.0-0.2); #Eosinphils 0.4 thou/uL (0.0-0.7); #Monocytes 1.2 thou/uL (0.11-0.59); #Neutrophils 8.6 thou/uL (1.40-6.50); %Basophils 0.5 % (0.0-1.0); %Eosinophils 3.2 % (0.0-10.0); %Lymphocytes 9.7 % (21.0-51.0); %Monocytes 10.4 % (0.0-10.0); %Neutrophils 75.8 % (42.0-75.0); Hematocrit 32.8 % (36.0-47.0); Hemoglobin 10.9 g/dL (12.0-16.0); Mean Corpuscular HGB CONC 33.2 g/dL (32.0-36.0); Mean Corpuscular Volume 96.2 fl (78.0-98.0); Mean Platelet Volume 12.2 fL (7.4-10.4); Platelet Count 206 10x3/uL (130-400); RBC Distribution Width 11.6 % (11.5-14.5); Red Blood Cell (RBC) Count 3.41 mill/uL (4.20-5.40); White Blood Cell (WBC) Count 11.3 10x3/uL (4.8-10.8)
[2023-08-30] MEDS: Metoclopramide HCl 10 MG/2 ML VIAL IVP SCH ×2 (05:26→14:39)
[2023-08-30] MEDS: Piperacillin/Tazobactam 3.375 GM in Sodium Chloride 0.9% 100 ML IVPB SCH ×2 (05:26→14:39)
[2023-08-30 05:29] LABS: Albumin 3.1 g/dL (3.4-4.8); Anion Gap 11 mmol/L (10-20); BUN (Urea Nitrogen) 26 mg/dL (9.8-20.1); BUN/Creatinine Ratio 36.62; Calc. Creatinine Clearance 52 mL/min (70-130); Calcium 8.7 mg/dL (7.8-10.44); Carbon Dioxide 25 mmol/L (23-31); Chloride 104 mmol/L (98-107); Estimated GFR 84; Glucose 96 mg/dL (83-110); Phosphorus 3.4 mg/dL (2.3-4.7); Potassium 4.8 mmol/L (3.5-5.1); Sodium 135 mmol/L (136-145)
[2023-08-30] MEDS ORDERED: Sodium Chloride 0.9% 1,000 ML IV SCH (08:15)
[2023-08-30] MEDS: Gabapentin 300 MG CAP PER TUBE SCH ×2 (10:14→16:09)
[2023-08-30] MEDS: Losartan 25 MG TAB PER TUBE SCH (10:14)
[2023-08-30] MEDS: Aspirin Chewable 81 MG TAB PER TUBE SCH (10:15)
[2023-08-30] MEDS: Clopidogrel Bisulfate 75 MG TAB PO SCH (10:15)
[2023-08-30] MEDS: NIFEdipine XL 60 MG ER.TAB PO SCH (10:15)
[2023-08-30] MEDS: Famotidine 20 MG TAB PER TUBE SCH (10:20)
[2023-08-30 12:40] VITALS: BP 129/61; TEMP 98.9
== END 2023-08-30 16:35 | DRG 62 ==
LOC: SUATTDRO 08:28 → ERS 08:28 → CCU 09:54 → IMCU/EMU 10:37 → 2SE 08-14 14:07
PROVIDERS: ADMIT Internal Medicine; ATTEND Internal Medicine
PROC: 3E03317 Introduction of Other Thrombolytic into Peripheral Vein, Percutaneous Approach (ICD-10-PCS; 2023-08-12)
PROC: 0DB78ZX Excision of Stomach, Pylorus, Via Natural or Artificial Opening Endoscopic, Diagnostic (ICD-10-PCS; principal; 2023-08-21)
PROC: 0DH63UZ Insertion of Feeding Device into Stomach, Percutaneous Approach (ICD-10-PCS; 2023-08-21)
PROC: 3E0G76Z Introduction of Nutritional Substance into Upper GI, Via Natural or Artificial Opening (ICD-10-PCS; 2023-08-21)
DX: I63.512 Cerebral infarction due to unspecified occlusion or stenosis of left middle cerebral artery (principal); E87.1 Hypo-osmolality and hyponatremia; G81.91 Hemiplegia, unspecified affecting right dominant side; N39.0 Urinary tract infection, site not specified; R41.82 Altered mental status, unspecified; Z51.5 Encounter for palliative care; Z66 Do not resuscitate; B96.20 Unspecified Escherichia coli [E. coli] as the cause of diseases classified elsewhere; B96.5 Pseudomonas (aeruginosa) (mallei) (pseudomallei) as the cause of diseases classified elsewhere; R47.1 Dysarthria and anarthria; I10 Essential (primary) hypertension; E87.6 Hypokalemia; E83.39 Other disorders of phosphorus metabolism; E78.5 Hyperlipidemia, unspecified; D69.6 Thrombocytopenia, unspecified; F41.1 Generalized anxiety disorder; E87.8 Other disorders of electrolyte and fluid balance, not elsewhere classified; R13.12 Dysphagia, oropharyngeal phase; R33.9 Retention of urine, unspecified; Z90.49 Acquired absence of other specified parts of digestive tract; Z79.899 Other long term (current) drug therapy
CPT/HCPCS: 36415; 36416; 70450; 70496; 70498; 70551; 71045; 74018; 74230; 80048; 80053; 80061; 80069; 81001; 83036; 83735; 84100; 84443; 84484; 85025; 85027; 85610; 85730; 87040; 87077; 87086; 87186; 88305; 93005; 93306; 96365; 96374; 96375; J0360; J1885; J2060; J2272; J2543; J2704; J2765; J3101; J3475; J3480; J3490; J7030; J7050; J7120; Q9967; S0028

== ENCOUNTER 2023-09-23 18:16 | Inpatient (IN) | payer MEDICARE ==
[~2023-09-23 18:16] MED LIST: Iopamidol 370 76% 100 ML VIAL ONE
[2023-09-23 18:54] LABS: Bacteria/HPF 4+ HPF (None Seen); Bilirubin Negative (Negative); Blood, Urine 3+ (Negative); CAUTI Indications for Culture Alt mental st,lethar; Clarity Extra Turbid (Clear); Glucose, Urine (Dipstick) 30 mg/dL (Negative); Ketone, Urine Negative (Negative); Leukocyte 250 Leu/uL (Negative); Nitrite Negative (Negative); Protein, Urine (Dipstick) Greater than 600 mg/dL (Neg-Trace); RBC/HPF Greater than 50 HPF (0-3); Specific Gravity, Urine 1.014 (1.002-1.036); Squamous Epithelial None Seen HPF (0-3); Triple Phosphate Crystal 1+ HPF (None Seen); Urobilinogen Normal mg/dL (Less than 2); WBC/HPF Greater than 50 HPF (0-3); pH, Urine 8.5 (5.0-9.0)
[2023-09-23 18:57] LABS: Urine Culture Reflex Yes Yes
[2023-09-23] MEDS ORDERED: Sodium Chloride 0.9% 0 ML ONE (19:02)
[2023-09-23] MEDS ORDERED: Cefepime 2 GM VIAL ONE (19:02)
[2023-09-23 19:03] LABS: #Eosinphils 0.1 thou/uL (0.0-0.7); #Monocytes 0.8 thou/uL (0.11-0.59); %Basophils 0.1 % (0.0-1.0); %Eosinophils 0.5 % (0.0-10.0); %Lymphocytes 3.2 % (21.0-51.0); %Monocytes 4.5 % (0.0-10.0); %Neutrophils 91.2 % (42.0-75.0); Hematocrit 35.5 % (36.0-47.0); Hemoglobin 11.4 g/dL (12.0-16.0); Mean Corpuscular HGB CONC 32.1 g/dL (32.0-36.0); Mean Corpuscular Hemoglobin 32.1 pg (27.0-31.0); Mean Platelet Volume 12.9 fL (7.4-10.4); Platelet Count 175 10x3/uL (130-400); RBC Distribution Width 12.1 % (11.5-14.5); Red Blood Cell (RBC) Count 3.55 mill/uL (4.20-5.40); White Blood Cell (WBC) Count 18.6 10x3/uL (4.8-10.8)
[2023-09-23 19:32] LABS: Troponin I Less than 0.010 ng/mL (< 0.028)
[2023-09-23 19:33] LABS: ALT (SGPT) 58 U/L (8-55); AST (SGOT) 38 U/L (5-34); Albumin 3.4 g/dL (3.4-4.8); Alkaline Phosphatase 120 U/L (40-110); Anion Gap 13 mmol/L (10-20); BUN (Urea Nitrogen) 41 mg/dL (9.8-20.1); Bilirubin, Total 0.7 mg/dL (0.2-1.2); Calc. Creatinine Clearance 0 mL/min (70-130); Calcium 9.9 mg/dL (7.8-10.44); Carbon Dioxide 28 mmol/L (23-31); Chloride 103 mmol/L (98-107); Estimated GFR 72; Glucose 127 mg/dL (83-110); Lipase 27 U/L (8-78); Potassium 4.7 mmol/L (3.5-5.1); Protein, Total 7.4 g/dL (5.8-8.1); Sodium 139 mmol/L (136-145)
[2023-09-23] MEDS ORDERED: Vancomycin (BATCH) 1.25 GM in Premix 1 BAG IVPB SCH (20:00)
[2023-09-23 21:42] VITALS: BMI 20.5
[2023-09-23 23:01] LABS: Troponin I Less than 0.010 ng/mL (< 0.028)
[2023-09-23] MEDS ORDERED: Acetaminophen 325 MG TAB PO PRN (23:09)
[2023-09-23] MEDS ORDERED: Melatonin 3 MG TAB PER TUBE PRN (23:34)
[2023-09-23] MEDS ORDERED: Senokot S 8.6-50 MG TAB PER TUBE PRN (23:34)
[2023-09-23] MEDS ORDERED: Calcium Carbonate 500 MG ChewTAB PER TUBE PRN (23:34)
[2023-09-23] MEDS ORDERED: Baclofen 10 MG TAB PER TUBE PRN (23:34)
[2023-09-23] MEDS ORDERED: LevoFLOXacin 750 mg/D5W 750 MG in Premix 1 BAG IVPB SCH (23:59)
[2023-09-24 01:54] LABS: Troponin I Less than 0.010 ng/mL (< 0.028)
[2023-09-24] MEDS ORDERED: Acetaminophen 650 MG/20.3 ML UDCUP ONE (02:40)
[2023-09-24] MEDS: Lactated Ringer's 1,000 ML IV SCH ×3 (03:00→21:43)
[2023-09-24] MEDS ORDERED: LevoFLOXacin 750 mg/D5W 150 ml Premix Bag ONE (03:09)
[2023-09-24] MEDS ORDERED: Ondansetron PF 4 MG/2 ML Vial IVP PRN (06:41)
[2023-09-24] MEDS ORDERED: Ondansetron ODT 4 MG TAB PO PRN (06:42)
[2023-09-24] MEDS ORDERED: Vancomycin 1 GM in Premix 1 BAG IVPB SCH (09:00)
[2023-09-24] MEDS ORDERED: Cefepime 2 GM in Sodium Chloride 0.9% 100 ML IVPB SCH (09:00)
[2023-09-24] MEDS: Amlodipine 10 MG TAB PO SCH (09:27)
[2023-09-24] MEDS: Aspirin Chewable 81 MG TAB PER TUBE SCH (09:27)
[2023-09-24] MEDS: Clopidogrel Bisulfate 75 MG TAB PO SCH (09:27)
[2023-09-24] MEDS: Losartan 25 MG TAB PER TUBE SCH (09:27)
[2023-09-24] MEDS: Gabapentin 300 MG CAP PER TUBE SCH ×3 (09:27→21:44)
[2023-09-24] MEDS: Famotidine 20 MG TAB PO SCH ×2 (09:27→21:44)
[2023-09-24 09:55] LABS: #Monocytes 0.8 thou/uL (0.11-0.59); %Basophils 0.2 % (0.0-1.0); %Eosinophils 0.3 % (0.0-10.0); %Lymphocytes 6.1 % (21.0-51.0); %Monocytes 6.4 % (0.0-10.0); %Neutrophils 86.6 % (42.0-75.0); Hematocrit 30.6 % (36.0-47.0); Hemoglobin 9.9 g/dL (12.0-16.0); Mean Corpuscular HGB CONC 32.4 g/dL (32.0-36.0); Mean Platelet Volume 12.9 fL (7.4-10.4); Platelet Count 141 10x3/uL (130-400); RBC Distribution Width 12.7 % (11.5-14.5); Red Blood Cell (RBC) Count 3.09 mill/uL (4.20-5.40); White Blood Cell (WBC) Count 12.7 10x3/uL (4.8-10.8)
[2023-09-24 10:27] LABS: ALT (SGPT) 44 U/L (8-55); AST (SGOT) 29 U/L (5-34); Albumin 2.7 g/dL (3.4-4.8); Alkaline Phosphatase 86 U/L (40-110); Anion Gap 13 mmol/L (10-20); BUN (Urea Nitrogen) 31 mg/dL (9.8-20.1); Bilirubin, Total 0.6 mg/dL (0.2-1.2); Calc. Creatinine Clearance 61 mL/min (70-130); Calcium 8.8 mg/dL (7.8-10.44); Carbon Dioxide 22 mmol/L (23-31); Chloride 111 mmol/L (98-107); Estimated GFR 87; Globulin 3.3 g/dL (2.4-3.5); Glucose 110 mg/dL (83-110); Potassium 3.8 mmol/L (3.5-5.1); Sodium 142 mmol/L (136-145)
[2023-09-24] MEDS ORDERED: Vancomycin HCl 750 MG in Sodium Chloride 0.9% 250 ML 250 ML IVPB SCH (20:00)
[2023-09-24] MEDS: Cefepime 1 GM in Sodium Chloride 0.9% 100 ML IVPB SCH (21:43)
[2023-09-24] MEDS: Rosuvastatin 20 MG TAB PER TUBE SCH (21:44)
[2023-09-24] MEDS: Vancomycin (BATCH) 1.25 GM in Premix 1 BAG IVPB SCH (21:44)
[2023-09-24] MEDS: traMADol HCl 50 MG TAB PO PRN (21:45)
[2023-09-24] MEDS: Atenolol 50 MG TAB PO SCH (21:45)
[2023-09-25] MEDS ORDERED: Phenazopyridine HCl 100 MG TAB PO SCH (01:45)
[2023-09-25] MEDS: Acetaminophen 650 MG/20.3 ML UDCUP PER TUBE PRN ×2 (01:48→12:38)
[2023-09-25 09:11] LABS: #Eosinphils 0.5 thou/uL (0.0-0.7); #Monocytes 0.6 thou/uL (0.11-0.59); #Neutrophils 5.7 thou/uL (1.40-6.50); %Basophils 0.3 % (0.0-1.0); %Eosinophils 5.9 % (0.0-10.0); %Monocytes 7.7 % (0.0-10.0); %Neutrophils 74.7 % (42.0-75.0); Hematocrit 30.4 % (36.0-47.0); Hemoglobin 9.8 g/dL (12.0-16.0); Mean Corpuscular HGB CONC 32.2 g/dL (32.0-36.0); Mean Corpuscular Hemoglobin 31.4 pg (27.0-31.0); Mean Corpuscular Volume 97.4 fl (78.0-98.0); Mean Platelet Volume 12.2 fL (7.4-10.4); Platelet Count 135 10x3/uL (130-400); RBC Distribution Width 12.4 % (11.5-14.5); Red Blood Cell (RBC) Count 3.12 mill/uL (4.20-5.40); White Blood Cell (WBC) Count 7.6 10x3/uL (4.8-10.8)
[2023-09-25 09:37] LABS: Anion Gap 11 mmol/L (10-20); BUN (Urea Nitrogen) 17 mg/dL (9.8-20.1); Calc. Creatinine Clearance 71 mL/min (70-130); Calcium 8.6 mg/dL (7.8-10.44); Carbon Dioxide 22 mmol/L (23-31); Chloride 109 mmol/L (98-107); Estimated GFR 91; Glucose 93 mg/dL (83-110); Potassium 3.1 mmol/L (3.5-5.1); Sodium 139 mmol/L (136-145)
[2023-09-25] MEDS: Losartan 25 MG TAB PER TUBE SCH (09:38)
[2023-09-25] MEDS: Phenazopyridine HCl 100 MG TAB PO SCH ×3 (09:38→16:41)
[2023-09-25] MEDS: Aspirin Chewable 81 MG TAB PER TUBE SCH (09:38)
[2023-09-25] MEDS: traMADol HCl 50 MG TAB PO PRN (09:39)
[2023-09-25] MEDS: Gabapentin 300 MG CAP PER TUBE SCH ×3 (09:39→21:25)
[2023-09-25] MEDS: Famotidine 20 MG TAB PO SCH ×2 (09:39→21:26)
[2023-09-25] MEDS: Amlodipine 10 MG TAB PO SCH (09:39)
[2023-09-25] MEDS: Cefepime 1 GM in Sodium Chloride 0.9% 100 ML IVPB SCH (09:39)
[2023-09-25] MEDS: Lactated Ringer's 1,000 ML IV SCH ×2 (11:23→21:29)
[2023-09-25] MEDS: Polyethylene Glycol 3350 17 GM Packet PER TUBE SCH (11:23)
[2023-09-25 21:04] LABS: Vancomycin, Trough 8.8 ug/mL
[2023-09-25] MEDS: Cefepime 2 GM in Sodium Chloride 0.9% 100 ML IVPB SCH (21:25)
[2023-09-25] MEDS: Rosuvastatin 20 MG TAB PER TUBE SCH (21:26)
[2023-09-25] MEDS: Atenolol 50 MG TAB PO SCH (21:26)
[2023-09-25] MEDS: Vancomycin (BATCH) 1.25 GM in Premix 1 BAG IVPB SCH (21:56)
[2023-09-25] MEDS ORDERED: Vancomycin HCl 750 MG in Sodium Chloride 0.9% 250 ML 250 ML IVPB SCH (23:59)
[2023-09-26 06:39] LABS: Anion Gap 11 mmol/L (10-20); BUN (Urea Nitrogen) 18 mg/dL (9.8-20.1); Calc. Creatinine Clearance 75 mL/min (70-130); Calcium 8.3 mg/dL (7.8-10.44); Carbon Dioxide 24 mmol/L (23-31); Chloride 108 mmol/L (98-107); Estimated GFR 92; Glucose 103 mg/dL (83-110); Potassium 3.1 mmol/L (3.5-5.1); Sodium 140 mmol/L (136-145)
[2023-09-26] MEDS ORDERED: Electrolyte Replacement Protocol 1 EACH FS SCH (06:52)
[2023-09-26] MEDS ORDERED: Potassium Chloride 20 MEQ TAB PO SCH (08:00)
[2023-09-26] MEDS: Amlodipine 10 MG TAB PO SCH (09:25)
[2023-09-26] MEDS: Phenazopyridine HCl 100 MG TAB PO SCH ×3 (09:25→16:26)
[2023-09-26] MEDS: Famotidine 20 MG TAB PO SCH ×2 (09:25→20:21)
[2023-09-26] MEDS: Gabapentin 300 MG CAP PER TUBE SCH ×3 (09:26→20:21)
[2023-09-26] MEDS: Potassium Chloride 20 MEQ TAB PO SCH (09:26)
[2023-09-26] MEDS: Losartan 25 MG TAB PER TUBE SCH (09:26)
[2023-09-26] MEDS: Lactated Ringer's 1,000 ML IV SCH ×2 (09:27→16:26)
[2023-09-26] MEDS: Cefepime 2 GM in Sodium Chloride 0.9% 100 ML IVPB SCH (09:27)
[2023-09-26] MEDS: Aspirin Chewable 81 MG TAB PER TUBE SCH (09:48)
[2023-09-26] MEDS: Polyethylene Glycol 3350 17 GM Packet PER TUBE SCH (09:49)
[2023-09-26] MEDS: Clopidogrel Bisulfate 75 MG TAB PO SCH (12:23)
[2023-09-26] MEDS: Acetaminophen 650 MG/20.3 ML UDCUP PER TUBE PRN (20:20)
[2023-09-26] MEDS: Sulfameth/Trimethoprim DS 800-160mg TAB PO SCH (20:21)
[2023-09-26] MEDS: Atenolol 50 MG TAB PO SCH (20:21)
[2023-09-26] MEDS: Rosuvastatin 20 MG TAB PER TUBE SCH (20:21)
[2023-09-26] MEDS: traMADol HCl 50 MG TAB PO PRN (23:39)
[2023-09-27] MEDS: Acetaminophen 650 MG/20.3 ML UDCUP PER TUBE PRN ×3 (01:29→20:54)
[2023-09-27 06:00] LABS: #Eosinphils 0.3 thou/uL (0.0-0.7); #Monocytes 0.6 thou/uL (0.11-0.59); %Basophils 0.2 % (0.0-1.0); %Eosinophils 4.6 % (0.0-10.0); %Lymphocytes 17.7 % (21.0-51.0); %Monocytes 10.1 % (0.0-10.0); %Neutrophils 67.1 % (42.0-75.0); Hematocrit 26.3 % (36.0-47.0); Hemoglobin 8.9 g/dL (12.0-16.0); Mean Corpuscular HGB CONC 33.8 g/dL (32.0-36.0); Mean Corpuscular Hemoglobin 32.1 pg (27.0-31.0); Mean Corpuscular Volume 94.9 fl (78.0-98.0); Mean Platelet Volume 12.1 fL (7.4-10.4); Platelet Count 144 10x3/uL (130-400); RBC Distribution Width 12.3 % (11.5-14.5); Red Blood Cell (RBC) Count 2.77 mill/uL (4.20-5.40); White Blood Cell (WBC) Count 5.9 10x3/uL (4.8-10.8)
[2023-09-27] MEDS: Lactated Ringer's 1,000 ML IV SCH ×2 (06:11→15:59)
[2023-09-27 07:02] LABS: Anion Gap 9 mmol/L (10-20); BUN (Urea Nitrogen) 11 mg/dL (9.8-20.1); Calc. Creatinine Clearance 73 mL/min (70-130); Calcium 8.2 mg/dL (7.8-10.44); Carbon Dioxide 25 mmol/L (23-31); Chloride 108 mmol/L (98-107); Estimated GFR 92; Glucose 94 mg/dL (83-110); Potassium 3.3 mmol/L (3.5-5.1); Sodium 139 mmol/L (136-145)
[2023-09-27] MEDS: Potassium Chloride 20 MEQ TAB PO SCH (08:57)
[2023-09-27] MEDS: Famotidine 20 MG TAB PO SCH ×2 (08:57→20:53)
[2023-09-27] MEDS: Gabapentin 300 MG CAP PER TUBE SCH ×3 (08:58→20:53)
[2023-09-27] MEDS: Clopidogrel Bisulfate 75 MG TAB PO SCH (08:58)
[2023-09-27] MEDS: Aspirin Chewable 81 MG TAB PER TUBE SCH (08:58)
[2023-09-27] MEDS: Sulfameth/Trimethoprim DS 800-160mg TAB PO SCH ×2 (08:58→20:53)
[2023-09-27] MEDS: Amlodipine 10 MG TAB PO SCH (08:58)
[2023-09-27] MEDS: Phenazopyridine HCl 100 MG TAB PO SCH (08:59)
[2023-09-27] MEDS: Losartan 25 MG TAB PER TUBE SCH (08:59)
[2023-09-27] MEDS ORDERED: Potassium Bicarbonate/Cit Ac 20 MEQ TAB PER TUBE SCH (09:00)
[2023-09-27] MEDS: Polyethylene Glycol 3350 17 GM Packet PER TUBE SCH (09:00)
[2023-09-27] MEDS: traMADol HCl 50 MG TAB PO PRN (11:31)
[2023-09-27] MEDS: Rosuvastatin 20 MG TAB PER TUBE SCH (20:53)
[2023-09-27] MEDS: Atenolol 50 MG TAB PO SCH (20:53)
[2023-09-28] MEDS: Lactated Ringer's 1,000 ML IV SCH ×2 (02:48→12:15)
[2023-09-28 06:28] LABS: Anion Gap 13 mmol/L (10-20); BUN (Urea Nitrogen) 10 mg/dL (9.8-20.1); Calc. Creatinine Clearance 71 mL/min (70-130); Calcium 8.7 mg/dL (7.8-10.44); Carbon Dioxide 25 mmol/L (23-31); Chloride 103 mmol/L (98-107); Estimated GFR 91; Glucose 90 mg/dL (83-110); Potassium 4.5 mmol/L (3.5-5.1); Sodium 136 mmol/L (136-145)
[2023-09-28 07:46] VITALS: BP 161/65; TEMP 98.3
[2023-09-28] MEDS: Sulfameth/Trimethoprim DS 800-160mg TAB PO SCH (08:27)
[2023-09-28] MEDS: Famotidine 20 MG TAB PO SCH (08:27)
[2023-09-28] MEDS: Losartan 25 MG TAB PER TUBE SCH (08:27)
[2023-09-28] MEDS: Polyethylene Glycol 3350 17 GM Packet PER TUBE SCH (08:27)
[2023-09-28] MEDS: Aspirin Chewable 81 MG TAB PER TUBE SCH (08:27)
[2023-09-28] MEDS: Amlodipine 10 MG TAB PO SCH (08:27)
[2023-09-28] MEDS: Gabapentin 300 MG CAP PER TUBE SCH ×2 (08:27→15:28)
[2023-09-28] MEDS: Clopidogrel Bisulfate 75 MG TAB PO SCH (08:27)
[2023-09-28] MEDS ORDERED: Metoclopramide HCl 10 MG TAB PER TUBE PRN (12:51)
== END 2023-09-28 17:37 | DRG 698 ==
LOC: ERS 18:16 → T4-A 20:00 → ERHOLD 20:41 → T4-A 09-24 07:10
PROVIDERS: ADMIT Student in an Organized Health Care Education/Training Program; ATTEND Student in an Organized Health Care Education/Training Program
DX: T83.511A Infection and inflammatory reaction due to indwelling urethral catheter, initial encounter (principal); A41.9 Sepsis, unspecified organism; I69.351 Hemiplegia and hemiparesis following cerebral infarction affecting right dominant side; I10 Essential (primary) hypertension; E78.5 Hyperlipidemia, unspecified; R33.8 Other retention of urine; E87.6 Hypokalemia; F41.1 Generalized anxiety disorder; M85.80 Other specified disorders of bone density and structure, unspecified site; K52.9 Noninfective gastroenteritis and colitis, unspecified; R31.0 Gross hematuria; I69.391 Dysphagia following cerebral infarction; Z93.1 Gastrostomy status; I69.322 Dysarthria following cerebral infarction; I69.392 Facial weakness following cerebral infarction; Z79.899 Other long term (current) drug therapy; Z79.82 Long term (current) use of aspirin; B34.9 Viral infection, unspecified; Z20.822 Contact with and (suspected) exposure to COVID-19
CPT/HCPCS: 36415; 51701; 70450; 71045; 71275; 74178; 80048; 80053; 80202; 81001; 83605; 83690; 83735; 83880; 84145; 84484; 85025; 85379; 86140; 87040; 87077; 87086; 87149; 87186; 87205; 93005; 96361; 96365; 96366; 96367; 96374; 97139; J0692; J1650; J1885; J1956; J3370; J3490; J7050; J7120; Q9967

== ENCOUNTER 2023-09-28 20:21 | Emergency (ER) | payer MEDICARE ==
[~2023-09-28 20:21] MED LIST changes: -Iopamidol 370 76% 100 ML VIAL ONE; +Iopamidol-370 76% 500 ML MDV (1 ML CHARGE) ONE
[2023-09-28 21:13] LABS: #Eosinphils 0.1 thou/uL (0.0-0.7); #Monocytes 1.4 thou/uL (0.11-0.59); #Neutrophils 8.9 thou/uL (1.40-6.50); %Basophils 0.3 % (0.0-1.0); %Eosinophils 0.6 % (0.0-10.0); %Neutrophils 78.7 % (42.0-75.0); Hemoglobin 10.2 g/dL (12.0-16.0); Mean Corpuscular HGB CONC 32.9 g/dL (32.0-36.0); Mean Corpuscular Hemoglobin 31.9 pg (27.0-31.0); Mean Corpuscular Volume 96.9 fl (78.0-98.0); Mean Platelet Volume 11.9 fL (7.4-10.4); Platelet Count 145 10x3/uL (130-400); RBC Distribution Width 12.3 % (11.5-14.5); White Blood Cell (WBC) Count 11.3 10x3/uL (4.8-10.8)
[2023-09-28 21:34] LABS: ALT (SGPT) 99 U/L (8-55); AST (SGOT) 79 U/L (5-34); Albumin 3.1 g/dL (3.4-4.8); Alkaline Phosphatase 130 U/L (40-110); Anion Gap 13 mmol/L (10-20); BUN (Urea Nitrogen) 18 mg/dL (9.8-20.1); Bilirubin, Total 0.6 mg/dL (0.2-1.2); Calc. Creatinine Clearance 0 mL/min (70-130); Calcium 8.5 mg/dL (7.8-10.44); Carbon Dioxide 23 mmol/L (23-31); Chloride 101 mmol/L (98-107); Estimated GFR 87; Glucose 86 mg/dL (83-110); Potassium 4.4 mmol/L (3.5-5.1); Protein, Total 6.1 g/dL (5.8-8.1); Sodium 133 mmol/L (136-145)
[2023-09-28 22:04] LABS: SARS-CoV-2 NAA Rapid Test Not Detected (NotDetected)
[2023-09-28 22:12] LABS: Bacteria/HPF None Seen HPF (None Seen); Bilirubin Negative (Negative); Blood, Urine Negative (Negative); CAUTI Indications for Culture Fever or rigors; Clarity Clear (Clear); Glucose, Urine (Dipstick) Normal (Negative); Ketone, Urine Negative (Negative); Leukocyte Negative Leu/uL (Negative); Nitrite Negative (Negative); Protein, Urine (Dipstick) 20 mg/dL (Neg-Trace); Specific Gravity, Urine 1.007 (1.002-1.036); Squamous Epithelial None Seen HPF (0-3); Urobilinogen 12 mg/dL (Less than 2); pH, Urine 7.5 (5.0-9.0)
[2023-09-28 22:38] LABS: RBC/HPF 0-3 HPF (0-3)
[2023-09-28 22:39] LABS: Urine Culture Reflex No No
[2023-09-29] MEDS ORDERED: Ketorolac Tromethamine 30 MG/ML VIAL ONE (00:01)
== END 2023-09-29 00:15 | disposition home or self-care (01) ==
LOC: ERS 20:21
DX: B34.9 Viral infection, unspecified (principal); I10 Essential (primary) hypertension; Z79.899 Other long term (current) drug therapy; Z20.822 Contact with and (suspected) exposure to COVID-19; Z79.82 Long term (current) use of aspirin
CPT/HCPCS: 0240U; 71045; 71275; 80053; 81001; 85025; 85379; 93005; 36415; J1885